=== PATIENT | male | born 1940 | race Caucasian/White ===

== ENCOUNTER 2016-12-31 09:21 | Emergency (ER) | payer MEDICARE ==
[2016-12-31 10:08] LABS: Urine Bilirubin Negative (NEGATIVE); Urine Blood Negative /ul (NEGATIVE); Urine Ketone Negative (NEGATIVE); Urine Nitrite Negative (NEGATIVE); Urine Protein Negative (NEGATIVE); Urine Urobilinogen Normal (NORMAL)
[2016-12-31 10:11] LABS: Hematocrit 43.7 % (42.0-52.0); Hemoglobin 14.7 gm/dL (13.5-18.0); Mean Cell Volume 87.2 fl (78-100); Mean Corpuscular Hemoglobin 29.3 pg (27-31); Mean Corpuscular Hgb Conc 33.6 g/dl (32-36); Mean Platelet Volume 10.2 fl (6.0-9.5); Neutrophil % 77.9 % (42-75.0); Platelet Count 465 K/mm3 (150-450); Red Blood Count 5.01 M/mm3 (4.7-6.0); Red Cell Distribution Width 13.4 % (11.5-14.0); White Blood Count 12.9 K/mm3 (4.0-10.5)
[2016-12-31 10:12] LABS: ALT 23 U/L (19-67); AST 13 U/L (0-48); Albumin * 3.2 gm/dl (3.4-5.0); Alkaline Phosphatase * 86 U/L (50-170); Anion Gap 14.2 mmol/L (6.8-13.8); BUN/Creatinine Ratio 15.8 (9.0-21.6); Bilirubin, Total 0.6 mg/dL (0.0-1.1); Blood Urea Nitrogen 19 mg/dL (6-23); Ca. Corrected For Albumin 10.9 mg/dL (8.4-10.2); Calcium * 10.6 mg/dL (7.9-10.9); Carbon Dioxide 24.8 mmol/L (24-32.6); Chloride 99 mmol/L (97-106); Glucose * 134 mg/dL (70-110); Lipase 310 U/L (73-393); Sodium 133 mmol/L (132-142); Total Protein 7.4 gm/dL (6.2-8.2); Troponin I Less than 0.017 ng/ml (0.00-0.10)
[2016-12-31 10:19] LABS: Urine Appearance Clear; Urine Bacteria TRACE; Urine Color Yellow; Urine RBC TRACE /hpf (0-5); Urine WBC 0-5 /hpf (0-5)
[2016-12-31] MEDS ORDERED: DIATRIZOATE MEGLU/DIATRIZO SOD 30 ML BTL PO ONE (10:33)
[2016-12-31] MEDS ORDERED: DIATRIZOATE MEGLU/DIATRIZO SOD 30 ML BTL ONE (10:34)
[2016-12-31] MEDS ORDERED: MORPHINE SULFATE 2 MG/ML DISP.SYRIN ONE (10:47)
[2016-12-31] MEDS ORDERED: MORPHINE SULFATE 2 MG/ML DISP.SYRIN IV ONE (10:47)
[2016-12-31] MEDS ORDERED: ONDANSETRON HCL/PF 2 MG/ML VIAL IV ONE (10:54)
[2016-12-31] MEDS ORDERED: ONDANSETRON HCL/PF 2 MG/ML VIAL ONE (10:55)
[2016-12-31] MEDS ORDERED: NORMAL SALINE 500 ML IV ONE (11:43)
[2016-12-31] MEDS ORDERED: LIDOCAINE HCL 20 ML UDC PO ONE (13:15)
[2016-12-31] MEDS ORDERED: MAG HYDROX/ALUMINUM HYD/SIMETH 30 ML UDC PO ONE (13:15)
[2016-12-31] MEDS ORDERED: LEVOFLOXACIN/D5W 500 MG/100 ML BAG IV SCH (13:45)
--- NOTE | 2016-12-31 13:56 | ERNOTE ---
Abdominal HPI - Narrative Date of Service: 12/31/16 - General Chief Complaint: Abdominal Pain Time Seen by Provider: 12/31/16 09:29 Source: patient Exam Limitations: no limitations - Immun/Allergies/Home Medications Immunizatons: IMMUNIZATION HX Immunizations Up to Date Yes History of Influenza Vaccine Yes Hx Pneumococcal Vaccination Yes Allergies/Adverse Reactions: Allergies No Known Allergies Allergy (Verified 12/31/16 09:28) Home Medications: HOME MEDICATIONS Aspirin [Aspirin Enteric Coated] 81 mg PO DAILY 08/07/14 [Last Taken Unknown] Atorvastatin Calcium [Lipitor] 80 mg PO DAILY 08/07/14 [Last Taken Unknown] Blood Sugar Diagnostic, Drum [Accu-Chek Compact] 1 each MC DAILY 08/07/14 [Last Taken Unknown] Esomeprazole Magnesium [Nexium] 40 mg PO DAILY 08/07/14 [Last Taken Unknown] Ezetimibe [Zetia] 10 mg PO DAILY 08/07/14 [Last Taken Unknown] Gemfibrozil [Lopid] 600 mg PO BID 08/07/14 [Last Taken Unknown] Lisinopril [Zestril] 40 mg PO DAILY 08/07/14 [Last Taken Unknown] Metoprolol Tartrate [Lopressor] 50 mg PO BIDWM 08/07/14 [Last Taken 08/07/14 19: 00] amLODIPine BESYLATE [Norvasc] 5 mg PO DAILY 08/07/14 [Last Taken Unknown] glipiZIDE [Glucotrol] 10 mg PO BIDAC 08/07/14 [Last Taken Unknown] metFORMIN HCL [Glucophage] 1,000 mg PO BIDWM 08/07/14 [Last Taken Unknown] Acarbose [Precose] 50 mg PO TID 11/28/15 [Last Taken Unknown] Albuterol Sulfate [Proair Respiclick] 2 puff IH Q4H PRN 12/31/16 [Last Taken Unknown] Benzonatate [Tessalon Perle] 100 mg PO TID PRN 12/31/16 [Last Taken Unknown] Levofloxacin [Levaquin] 500 mg PO DAILY 12/31/16 [Last Taken Unknown] Mometasone Furoate [Asmanex] 220 mcg IH HS 12/31/16 [Last Taken Unknown] Niacin [Niaspan] 1,000 mg PO DAILY 12/31/16 [Last Taken Unknown] sitaGLIPtin PHOSPHATE [Januvia] 100 mg PO DAILY 12/31/16 [Last Taken Unknown] - History of Present Illness Narrative: Patient presents to the ED for abdominal pain. He relates he had a recent pneumonia and has been on ABx for that. He relates he has been having some upper abdominal discomfort off and on for a couple of days but it was much more intense since 4 am. now it is improved. He thought it was his reflux so he took Tums and that helped but then it came back. He has had a couple of episodes of vomiting over the last couple of days but none today. No diarrhea. No fever. No acute CP, and his pneumonia Sx have improved. He relates most of the pain above the umbilicus and left but also some in the RUQ. Tums improved it but it came back after that. Timing: intermittent, other - fluctuating intensity Quality: moderate Activities at Onset: none Modifying Factors - (Improves): Present: other - TUMS Modifying Factors - (Worsens): Present: other - nothing Associated Symptoms: Absent: fever/chills Prior Treatment: Present: recently seen Review of Systems - Review of Systems Constitutional: Absent: fever ENT: Absent: sore throat Respiratory: Present: other - recent pneumonia, he relates clinically improved Cardiology: Present: See HPI Gastrointestinal/Abdominal: Present: See HPI Genitourinary: Absent: dysuria Skin: Absent: rash All Other Systems: All systems neg except as marked - Patient's Past Medical History Patient History - Medical: Diabetes Type 2, GERD, Osteoarthritis Patient History - Cardiac/Respiratory: Hypertension, Hyperlipidemia Patient History - Cancer: No Hx of Cancer Patient History - Surgical Procedures: Total Knee Replacement Patient History - Other: None - Family History Mother Family History - Medical: , No pertinent hx Father Family History - Medical: Family History - Cardiac/Respiratory: Aneurysm - Social History Living Situations: spouse Abuse History: No History of abuse Psych History: No pertinent hx Does anyone smoke in the home?: No Smoking Status: Former smoker Alcohol Use: occasionally Drug Use: none - Immunizations Immunizations Up to Date: Yes Hx Pneumococcal Vaccination: Yes History of Influenza Vaccine: Yes Physical Exam - Physical Exam General Appearance: Present: alert, no apparent distress Eye Exam: Normal inspection: bilateral, PERRL: bilateral Ears, Nose, Throat: Present: normal ENT inspection Neck: Present: normal inspection Respiratory: Present: no respiratory distress, normal breath sounds, no accessory muscle use, lungs clear, other - no wheezing Cardiovascular/Chest: Present: regular rate, rhythm, normal peripheral pulses Gastrointestinal/Abdominal: Present: normal bowel sounds, nondistended, soft, other - there is LUQ tendenress, epigastric tenderness and RUQ tenderness. The most tenderness is LUQ. Negatve Manuel's. Back Exam: Absent: CVA tenderness (R), CVA tenderness (L) Extremity Exam: Present: normal inspection Neurological Exam: Present: alert, normal mood/affect, no motor/sensory deficits Skin Exam: Absent: skin rash ED Progress - Results and Orders Patient's Lab Results:: I have reviewed the patient's lab results. - Vital Signs Patient's Vital Signs:: I have reviewed the patient's vital signs. Vital Signs: Vital Signs 12/31/16 12/31/16 12/31/16 09:25 10:03 10:39 Temperature 36.6 C Pulse Rate 86 85 89 Respiratory 14 16 17 Rate Blood Pressure 106/78 109/71 112/70 O2 Sat by Pulse 95 95 94 Oximetry 12/31/16 12/31/16 12/31/16 10:50 11:38 11:55 Temperature Pulse Rate 86 78 78 Respiratory 19 10 L 10 L Rate Blood Pressure 98/45 98/57 105/61 O2 Sat by Pulse 95 88 L 92 Oximetry 12/31/16 13:00 Temperature Pulse Rate 71 Respiratory 22 H Rate Blood Pressure 106/64 O2 Sat by Pulse 93 Oximetry - EKG EKG read: Interp. by me EKG Comments: NSR rate 79. Non-specific, no evidence of acute infarct or ischemic pattern. - X-Ray X-Ray #1 X-Ray: chest X-ray Comments: I reviewed all radiology reports. - CT/Ultrasound CT/Ultrasound Narrative: I reviewed CT result - Progress/Reassessment Chief Complaint: Abdominal Pain Progress Note-Subjective: 12/31/16 13:48 Patient Was given IV morphine and reacted very poorly to this. His Sx resolved with observation but he felt poorly and vomited after the morphine, all Sx resolved, no allergic Sx. No clear acute CT abnormality. He has mild potassium elevation but without renal insufficiency, I feel he can have this re- checked. No evidence of ACS/[place]. His pneumonia is improving with Levaquin. He did not raymond ehis levaquin today so an IV dose was given. On re-exam he had mild epigastric tenderness but was much improved. Non-surgical eval. his sats were 93% on RA when I was in the room and he was resting comfortably, speaking in full sentences and in no distress. He feels like going home. He has an appointment with his PCP in the morning. I would like a GB US but he has not been fasting, will have RUQ US in am prior to PCP visit so PCP has a complete picture. I discussed warning signs and reasons to return as well as the need for close f/u. Departure - Departure Clinical Impression: Abdominal pain Disposition: Home self-care Condition: Stable Instructions: Abdominal Pain, Adult, [id number] Additional Instructions: Rest. Nothig to eat or drink after 10pm. You have an US of your gallbladder at 7am tomorrow and an appointment with Dr Miles at 9am tomorrow. Return here for increased pain, trouble breathing or if your condition worsens or changes in any way. Referrals: Nile Lockett MD [Primary Care Provider] -
[2016-12-31 15:16] VITALS: BP 111/71
== END 2016-12-31 15:08 | disposition home or self-care (01) ==
LOC: ER 09:21
DX: J18.9 Pneumonia, unspecified organism (principal); R11.10 Vomiting, unspecified; R10.13 Epigastric pain; Z87.891 Personal history of nicotine dependence
CPT/HCPCS: 36415; 71010; 74177; 80053; 81001; 83690; 84484; 85025; 93005; 96365; 96375; 99284; J2405